=== PATIENT | female | born 1965 | race African-American/Black ===

== ENCOUNTER 2019-05-21 20:19 | Inpatient (IN) | payer BC ==
--- NOTE | 2019-05-21 20:21 | PDOC ---
Rapid Medical Evaluation Time Seen by Provider: 05/21/19 20:20 Medical Evaluation: 05/21/19 20:20 I have performed a brief in-person evaluation of this patient. The patient presents with a chief complaint of:Chest pain x 5 days. H/o HTN and ? "antiphospholipid syndrome" per pt but denies h/o dvt/PE Pertinent physical exam findings:Elevated BP, NAD I have ordered the following:ekg/cxr/labs The patient will proceed to the ED for further evaluation. Discharge Disposition - Diagnosis Chest pain Qualifiers: Chest pain type: unspecified Qualified Code(s): R07.9 - Chest pain, unspecified - Referrals - Patient Instructions - Post Discharge Activity
[2019-05-21] MEDS ORDERED: ASPIRIN 81 MG CHEWABLE TABLETS PO ONE (20:42)
--- NOTE | 2019-05-21 20:43 | PDOC ---
History of Present Illness - General Chief Complaint: Chest Pain Stated Complaint: CHEST PAIN Time Seen by Provider: 05/21/19 20:20 History Source: Patient Exam Limitations: No Limitations - History of Present Illness Initial Comments: 54 year old female with PMH HTN, HLD, pre-diabetes, fibromyalgia, anti- phospholipid syndrome presented to ED for chest pain x1 month, worsening over the last 5 days. Pt reported her pain is currently left sided, non-radiating, a "tightness" sensation, aggravated by emotional stress, alleviated by rest/ relaxation. Pt reported she felt the pain every couple of days or so over the last month, but the last five days she has felt it every single day, prompting her to go to Urgent Care today. Pt reported she was told she had normal labs and normal EKG, but at the end of her visit her chest pain returned and she was advsied to come to the ED for evaluation. Pt denied recent travel>5 hours, recent surgery<4 weeks, active malignancy <6 months, Hx DVT/PE, hormone use. Pt denied cough, fever, vomiting, palpitations, shortness of breath, ROPER, orthopnea , LE swelling. Family cardiac history: -Mother: PA @ 70 yo -Father: PA @ 54 yo -Brother: PA @48 yo Past History - Past Medical History Allergies/Adverse Reactions: Allergies Allergy/AdvReac Type Severity Reaction Status Date / Time No Known Allergies Allergy Verified 05/21/19 20:23 Home Medications: Ambulatory Orders Amlodipine Besylate 10 mg PO DAILY 05/21/19 Aspirin 81 mg PO HS 05/21/19 Hydrochlorothiazide 25 mg PO DAILY 05/21/19 Lisinopril 20 mg PO DAILY 05/21/19 Acetaminophen [Tylenol -] 500 mg PO BID 05/22/19 COPD: No Other medical history: antiphospholipids, tendonitis, bursitis, back paroblems - Suicide/Smoking/Psychosocial Hx Smoking History: Never smoked Review of Systems - Review of Systems Able to Perform ROS?: Yes Comments:: General: denied fever, chills, generalized weakness. HEENT: denied sore throat, rhinorrhea, ear pain. Cardiovascular: admitted to chest pain. denied palpitations, syncope, diaphoresis. Respiratory: denied shortness of breath, cough, sputum production, hemoptysis. Gastrointestinal: denied abdominal pain, nausea, vomiting, diarrhea, constipation, blood in stool. Genitourinary: denied dysuria, increased urinary frequency, hematuria, urinary incontinence, flank pain. Back: denied back pain. Musculoskeletal: denied joint pain, muscle pain, joint swelling. Neurological: denied headache, dizziness, numbness, tingling, weakness. Integumentary: denied rash, laceration, abrasion. Hematologic/Lymphatic: denied bruising or bleeding. *Physical Exam - Vital Signs Last Vital Signs Temp Pulse Resp BP Pulse Ox 98.9 F 61 18 174/93 H 100 05/21/19 20:24 05/21/19 20:24 05/21/19 20:24 05/21/19 20:24 05/21/19 20:24 - Physical Exam Comments: Constitutional: Well-nourished, Well-developed, appearing stated age. HEENT: head is normocephalic, atraumatic. EOMI. PERRLA. Neck: supple. Full ROM. Chest: no rash to anterior chest wall. tenderness with palpation of left sided anterior chest wall. Cardiovascular: regular heart rhythm. no murmurs. no pericardial friction rub. Respiratory: clear to auscultation bilaterally. no crackles, rhonchi or wheezing. no stridor. Gastrointestinal: soft, nontender. normal bowel sounds. no rebound, guarding, masses. Extremities: peripheral pulses intact. no lower extremity edema. Neurological: CN 2-12 grossly intact. moves all four extremities. Psych: awake, alert, oriented x3. follows commands. answers questions appropriately. ED Treatment Course - LABORATORY CBC & Chemistry Diagram: 05/22/19 06:30 05/22/19 06:30 Medical Decision Making - Medical Decision Making 54 year old female with above PMH sent to ED via ambulance from [facility] for chest pain x1 month, worsening over the last five days. Initial Vital Signs Temp Pulse Resp BP Pulse Ox 98.9 F 61 18 174/93 H 100 05/21/19 20:24 05/21/19 20:24 05/21/19 20:24 05/21/19 20:24 05/21/19 20:24 Afebrile. No tachycardia. No tachypnea. Hypertensive. No hypoxia on room air. Labs ordered: CBC, CMP, troponin, BNP -D-dimer ordered by RME cancelled Imaging ordered: CXR, CTA chest Medications ordered: ASA 162 mg PO chew once EKG performed at 2035: rate 56, regular rhythm, normal axis, normal intervals, flipped T III, no acute ST changes. 05/21/19 21:42 CBC WBC 6.5 K/mm3 (4.0-10.0) 05/21/19 20:51 RBC 4.78 M/mm3 (3.60-5.2) 05/21/19 20:51 Hgb 13.5 GM/dL (10.7-15.3) 05/21/19 20:51 Hct 41.1 % (32.4-45.2) 05/21/19 20:51 MCV 86.0 fl (80-96) 05/21/19 20:51 MCH 28.2 pg (25.7-33.7) 05/21/19 20:51 MCHC 32.8 g/dl (32.0-36.0) 05/21/19 20:51 RDW 13.8 % (11.6-15.6) 05/21/19 20:51 Plt Count 316 K/MM3 (134-434) 05/21/19 20:51 MPV 9.4 fl (7.5-11.1) 05/21/19 20:51 Absolute Neuts (auto) 3.4 K/mm3 (1.5-8.0) 05/21/19 20:51 Neutrophils % 52.1 % (42.8-82.8) 05/21/19 20:51 Lymphocytes % 36.4 % (8-40) 05/21/19 20:51 Monocytes % 8.6 % (3.8-10.2) 05/21/19 20:51 Eosinophils % 2.0 % (0-4.5) 05/21/19 20:51 Basophils % 0.9 % (0-2.0) 05/21/19 20:51 Nucleated RBC % 0 % (0-0) 05/21/19 20:51 No leukocytosis. No anemia. 05/21/19 21:49 CMP Sodium 139 mmol/L (136-145) 05/21/19 20:51 Potassium 3.6 mmol/L (3.5-5.1) 05/21/19 20:51 Chloride 102 mmol/L (98-107) 05/21/19 20:51 Carbon Dioxide 30 mmol/L (21-32) 05/21/19 20:51 Anion Gap 7 MMOL/L (8-16) L 05/21/19 20:51 BUN 10.3 mg/dL (7-18) 05/21/19 20:51 Creatinine 1.0 mg/dL (0.55-1.3) 05/21/19 20:51 Est GFR (CKD-EPI)AfAm 73.97 05/21/19 20:51 Est GFR (CKD-EPI)NonAf 63.82 05/21/19 20:51 Random Glucose 100 mg/dL (74-106) 05/21/19 20:51 Calcium 9.9 mg/dL (8.5-10.1) 05/21/19 20:51 Total Bilirubin 0.4 mg/dL (0.2-1) 05/21/19 20:51 AST 28 U/L (15-37) 05/21/19 20:51 ALT 32 U/L (13-61) 05/21/19 20:51 Alkaline Phosphatase 88 U/L (45-117) 05/21/19 20:51 Creatine Kinase 274 U/L (26-192) H 05/21/19 20:51 Troponin I 0.02 ng/ml (0.00-0.05) 05/21/19 20:51 Total Protein 7.8 g/dl (6.4-8.2) 05/21/19 20:51 Albumin 3.7 g/dl (3.4-5.0) 05/21/19 20:51 05/21/19 22:06 Pt signed out to night EM resident, Dr. Moss. Pending CTA. Pt to be admitted under observation for chest pain. 05/22/19 15:59 Follow up: CTA report: Name: [facility] DEPARTMENT OF RADIOLOGY Phys: Susan Song RESIDENT : 1965 Age: 54 Sex: F [facility] Acct: [id number] Loc: [address] Exam Date: 05/21/19 Status: REG JUSTIN Mao [id number] Unit Number: [id number] EXAM#: TYPE/EXAM: RESULT: [id number] CT/CHEST CTA Chest CT angiography Clinical information: left-sided pleuritic chest pain; history of antiphospholipid; evaluate for pulmonary embolism Multiplanar imaging was performed following the intravenous administration of nonionic contrast. No prior imaging studies are available at this facility for direct comparison. No discrete pulmonary embolus is identified. There is no evidence of pneumothorax, pneumomediastinum, infiltrate or pleural effusion. Minimal to mild bilateral lower lobe discoid atelectasis/scarring is seen. There is no definite cardiac enlargement. No pericardial effusion is noted. There is no aortic aneurysm. No obvious aortic dissection is seen allowing for partially obscuring vascular pulsation artifact at the level of the ascending aorta. No definite lymphadenopathy is identified. The trachea and central bronchi appear unremarkable. The visualized osseous structures demonstrate no obvious CT evidence of acute abnormality. Impression: No CT evidence of pulmonary embolism. Minimal to mild bibasilar discoid atelectasis/scarring. The partially imaged left kidney demonstrates a 0.5 cm nonobstructing upper pole calculus. Reported By: Bo Junior MD 05/21/19 2249 *DC/Admit/Observation/Transfer Diagnosis at time of Disposition: Chest pain Qualifiers: Chest pain type: unspecified Qualified Code(s): R07.9 - Chest pain, unspecified - Discharge Dispostion Condition at time of disposition: Stable - Referrals - Patient Instructions - Post Discharge Activity
[2019-05-21 21:08] LABS: BASO % 0.9 % (0-2.0); HEMATOCRIT 41.1 % (32.4-45.2); HEMOGLOBIN 13.5 GM/dL (10.7-15.3); LYMPH % 36.4 % (8-40); MCH 28.2 pg (25.7-33.7); MCHC 32.8 g/dl (32.0-36.0); MEAN PLT VOLUME 9.4 fl (7.5-11.1); MONO % 8.6 % (3.8-10.2); NEUT % 52.1 % (42.8-82.8); PLATELET COUNT 316 K/MM3 (134-434); RBC 4.78 M/mm3 (3.60-5.2); RDW 13.8 % (11.6-15.6); WHITE BLOOD COUNT 6.5 K/mm3 (4.0-10.0)
[2019-05-21] MEDS ORDERED: ASPIRIN 81 MG CHEWABLE TABLETS ONE (21:08)
[2019-05-21 21:48] LABS: ALBUMIN 3.7 g/dl (3.4-5.0); BILIRUBIN,TOTAL 0.4 mg/dL (0.2-1); BLOOD UREA NITROGEN 10.3 mg/dL (7-18); CALCIUM 9.9 mg/dL (8.5-10.1); POTASSIUM 3.6 mmol/L (3.5-5.1); TOT PROT 7.8 g/dl (6.4-8.2)
--- NOTE | 2019-05-21 21:59 | PDOC ---
Documentation entered by Angel Garcia SCRIBE, acting as scribe for Hakeem Patel MD. Hakeem Patel MD: This documentation has been prepared by the Jose warren Daniel, SCRIBE, under my direction and personally reviewed by me in its entirety. I confirm that the documentation accurately reflects all work, treatment, procedures, and medical decision making performed by me. Attending Attestation - Resident Resident Name: Susan Song - ED Attending Attestation I have performed the following: I have examined & evaluated the patient, The case was reviewed & discussed with the resident, I agree w/resident's findings & plan, Exceptions are as noted - HPI HPI: 05/21/19 21:47 The patient is a 54 year old female with a past medical history of HTN, HLD, pre diabetes, and antiphospholipid syndrome here today for evaluation of chest pain. The patient reports that her chest pain began 5 days ago and describes it as left sided, a tightness, intermittent, and worsened by emotional stress and deep breaths. She states that she has been seen at an urgent care facility and received a negative work up. Patient denies headache, lightheadedness. Denies fever, chills. Denies shortness of breath. Denies nausea, vomiting, diarrhea, abdominal pain. Denies lower extremity edema. Denies recent travel Allergies: NKA Family history: [place]. PCP: Kaur Sinha - Physicial Exam PE: 05/21/19 21:47 GENERAL: Awake, alert, and fully oriented, in no acute distress HEAD: No signs of trauma EYES: PERRLA, EOMI, sclera anicteric, conjunctiva clear ENT: Auricles normal inspection, hearing grossly normal, nares patent, oropharynx clear without exudates. Moist mucosa NECK: Normal ROM, supple, no lymphadenopathy, JVD, or masses LUNGS: Breath sounds equal, clear to auscultation bilaterally. No wheezes, and no crackles HEART: Regular rate and rhythm, normal S1 and S2, no murmurs, rubs or gallops ABDOMEN: Soft, nontender, normoactive bowel sounds. No guarding, no rebound. No masses EXTREMITIES: Normal range of motion, no edema. No clubbing or cyanosis. No cords, erythema, or tenderness NEUROLOGICAL: Cranial nerves II through XII grossly intact. Normal speech, normal gait SKIN: Warm, Dry, normal turgor, no rashes or lesions noted. - Medical Decision Making 05/21/19 21:58 Chest pain worse with inspiration in pt w/ anti-phospholipid antibody syndrome HEART score 5 ekg shows TWI in III labs pending will r/o PE with CTA admit tele obs for MARLYS
[2019-05-21 22:07] LABS: PLATELET ESTIMATE ADEQUATE
--- NOTE | 2019-05-21 22:14 | PDOC ---
*Physical Exam - Vital Signs Last Vital Signs Temp Pulse Resp BP Pulse Ox 98.9 F 61 18 174/93 H 100 05/21/19 20:24 05/21/19 20:24 05/21/19 20:24 05/21/19 20:24 05/21/19 20:24 ED Treatment Course - LABORATORY CBC & Chemistry Diagram: 05/21/19 20:51 05/21/19 20:51 - ADDITIONAL ORDERS Additional order review: Laboratory Results 05/21/19 05/21/19 20:51 20:51 D-Dimer Cancelled Sodium 139 Potassium 3.6 Chloride 102 Carbon Dioxide 30 Anion Gap 7 L BUN 10.3 Creatinine 1.0 Est GFR (CKD-EPI)AfAm 73.97 Est GFR (CKD-EPI)NonAf 63.82 Random Glucose 100 Calcium 9.9 Total Bilirubin 0.4 AST 28 ALT 32 Alkaline Phosphatase 88 Creatine Kinase 274 H Creatine Kinase Index 0.5 CK-MB (CK-2) 1.4 Troponin I 0.02 Total Protein 7.8 Albumin 3.7 05/21/19 20:51 RBC 4.78 MCV 86.0 MCHC 32.8 RDW 13.8 MPV 9.4 Neutrophils % 52.1 Lymphocytes % 36.4 Monocytes % 8.6 Eosinophils % 2.0 Basophils % 0.9 - Medications Given in the ED: ED Medications Discontinued Medications Generic Name Dose Route Start Last Admin Trade Name Freq PRN Reason Stop Dose Admin Aspirin 162 mg 05/21/19 20:42 05/21/19 21:30 Asa - PO 05/21/19 20:43 162 mg ONCE ONE Administration Medical Decision Making - Medical Decision Making 05/21/19 22:12 Patient received on sign out from Dr. Song. 05/21/19 2300 CTA negative. 05/21/19 2330 Discussed with the hospitalist who accepts the patient for tele obs. *DC/Admit/Observation/Transfer Diagnosis at time of Disposition: Chest pain Qualifiers: Chest pain type: unspecified Qualified Code(s): R07.9 - Chest pain, unspecified - Discharge Dispostion Condition at time of disposition: Stable - Referrals - Patient Instructions - Post Discharge Activity
--- NOTE | 2019-05-21 23:34 | PN ---
Teaching Attending Note Name of Resident: Erickson Tiwari ATTENDING PHYSICIAN STATEMENT I saw and evaluated the patient. I reviewed the resident's note and discussed the case with the resident. I agree with the resident's findings and plan as documented. SUBJECTIVE: Patient is a 54 year old woman with a PMH of Fibromyalgia, HTN, HLD, Trigeminal neuralgia, C5-6 herniated disc,Prediabetes and Antiphospholipid syndrome who presents for evaluation of chest pain. The patient reports that her chest pain began 5 days ago and describes it as left sided, a tightness, intermittent, and worsened by emotional stress and deep breaths. She states that she has been seen at an urgent care facility and she was told she had normal labs and normal EKG. Patient denies headache, lightheadedness. Denies fever, chills. Denies shortness of breath. Denies nausea, vomiting, diarrhea, abdominal pain. Denies lower extremity edema. Denies recent travel. Has FH of premature CAD, DM and breast cancer but no VTE. OBJECTIVE: Alert Vital Signs Period Temp Pulse Resp BP Sys/Hooper Pulse Ox Last 24 Hr 98.9 F 61 18 174/93 100 HEENT: No Jaundice, eye redness or discharge, PERRLA, EOMI. Normocephalic, atraumatic. External ears are normal and hearing is grossly intact. No nasal discharge. Neck: Supple, nontender. No palpable adenopathy or thyromegaly. No JVD Chest: Good effort. Clear to auscultation and percussion. Heart: Regular. No S3, rub or murmur Abdomen: Not distended, soft, nontender and no HSM. No rebound or guarding. Normal bowel sounds. Ext: Peripheral pulses intact. No leg edema. Skin: Warm and dry. No petechiae, rash or ecchymosis. Neuro: Alert. Oriented x3. CN 2-12 grossly intact. Sensation grossly intact in all four extremities and DTR are symmetric. Psych: Appropriate mood and affect. Good insight. Home Medications Medication Instructions Recorded Amlodipine Besylate 10 mg PO DAILY 05/21/19 Aspirin 81 mg PO DAILY 05/21/19 Hydrochlorothiazide 25 mg PO DAILY 05/21/19 Lisinopril 20 mg PO DAILY 05/21/19 Abnormal Lab Results 05/21/19 20:51 Anion Gap 7 L Creatine Kinase 274 H ASSESSMENT AND PLAN: 1. Chest pain - Pain is atypical for ACS. EKG shows sinus bradycardia with T wave inversion in Lead III and initial troponin is negative. Will admit to telemetry to rule out ACS, get ECHO, fasting lipids and consult cardiology. CTA of chest didnot show any pulmonary embolism but noted bibasilar atelectasis and left upper lobe kidney calculus. No abnormality on CXR. Will continue comprehensive care of all her comorbid conditions. 2. Prediabetes Will implement sliding scale insulin regimen. Provide comprehensive diabetes care with patient teaching and counseling about the importance of adherence to prescribed diabetes regimen, euglycemia, eye care and foot care. 3. Obesity Counseled on the risks associated with obesity. Will provide patient all the necessary assistance, counseling and positive reinforcement to facilitate weight loss. Consult aquatics manager. 4. Uncontrolled hypertension - Restart suitable outpatient antihypertensive drugs when clinically appropriate. Revise regimen to ensure [id number] excellent BP control and general counsel patient on the injurious effects of uncontrolled hypertension. Nonpharmacologic measures to control hypertension like weight loss, salt restriction and exercise discussed. Importance of adherence to treatment regimen and attainment of normotension emphasized. 5. DVT prophylaxis - Lovenox 40 mg SQ q 24 hours. 6. Advance directives - Full code
--- NOTE | 2019-05-22 00:45 | HP ---
CHIEF COMPLAINT: chest pain PCP: Dr. Kaur Sinha HISTORY OF PRESENT ILLNESS: Alicia Albarado is a 54 year old female with a past medical history of hypertension, hyperlipidemia, pre-diabetes, trigeminal neuralgia, C5-C6 disc herniations, antiphospholipid syndrome, hiatal hernia, GERD, who presented to the hospital from an urgent care center with 5 days of chest pain. The patient stated that she has had chest pain on and off for several months however it was not as painful as it was when it started 5 days ago. She states that the pain is pressure like in nature with occasional stabbing-like pain located on the L side of her chest radiating to the shoulder and neck and worsened with stressful emotions and deep breathing. She attempted heating pads, rest, and 1000mg of Tylenol for the pain with no relief. Stated that the pain currently is a 6/10 in intensity but goes as high as 9/10. Associated with the pain has been intermittent nausea, diaphoresis, sporadic feelings of heart fluttering, and swelling in legs. She denies shortness of breath, dizziness, lightheadedness , fevers, chills, urinary symptoms, abdominal pain, vomiting, leg pain, numbness, tingling. Of note, patient had bleeding from her left breast several months back for which she had a breast biopsy done, stated that the results were benign. Currently stated that she again had bleeding from the left breast for which she has an appointment for with her PHOTO INTERN Dr. Rosibel Gannon for follow up. ER course was notable for: (1) EKG with T wave inversion in lead III, premature atrial complex (2) given aspirin 162mg once (3) CXR with no acute abnormalities, CTA showing mild bibasilar discoid atelectasis, L kidney 0.5cm nonobstructing calculus, negative for PE Recent Travel: none PAST MEDICAL HISTORY: as above PAST SURGICAL HISTORY: partial hysterectomy (uterus removed), breast biopsy x2 Social History: Smoking: denies Alcohol: denies Drugs: denies Work: Desk job at [employer] Lives with son Family History: Mother- dialysis, [place] Father - [place], age 54 Brother- [place], age 48 Brother- [place] Sister- Hodgkin lymphoma Sister- Breast [place] Allergies shellfish -- anaphylactic reaction HOME MEDICATIONS: Home Medications Medication Instructions Recorded Amlodipine Besylate 10 mg PO DAILY 05/21/19 Aspirin 81 mg PO DAILY 05/21/19 Hydrochlorothiazide 25 mg PO DAILY 05/21/19 Lisinopril 20 mg PO DAILY 05/21/19 Acetaminophen [Tylenol -] 500 mg PO PRN PRN 05/22/19 REVIEW OF SYSTEMS CONSTITUTIONAL: diaphoresis Absent: fever, chills, generalized weakness, malaise, loss of appetite, weight change HEENT: Absent: rhinorrhea, nasal congestion, throat pain, throat swelling, difficulty swallowing, visual changes CARDIOVASCULAR: chest pain, palpitations Absent: syncope, irregular heart rate, lightheadedness RESPIRATORY: Absent: cough, shortness of breath, dyspnea with exertion, orthopnea, wheezing, stridor, GASTROINTESTINAL: nausea Absent: abdominal pain, abdominal distension, vomiting, diarrhea, constipation, GENITOURINARY: Absent: dysuria, frequency, urgency, hesitancy, hematuria, flank pain, genital pain MUSCULOSKELETAL: neck pain Absent: myalgia, arthralgia, joint swelling, back pain, SKIN: Absent: rash, itching, pallor HEMATOLOGIC/IMMUNOLOGIC: Absent: easy bleeding, easy bruising, lymphadenopathy, ENDOCRINE: Absent: unexplained weight gain, unexplained weight loss, heat intolerance, cold intolerance NEUROLOGIC: Absent: headache, focal weakness or paresthesias, dizziness, unsteady gait, seizure, mental status changes, bladder or bowel incontinence PSYCHIATRIC: Absent: anxiety, depression, suicidal or homicidal ideation, hallucinations. PHYSICAL EXAMINATION Vital Signs - 24 hr 05/21/19 05/21/19 05/22/19 20:24 20:45 00:29 Temperature 98.9 F 98.3 F 98.4 F Pulse Rate 61 99 H Pulse Rate [ 57 L 56 L Left Apical] Respiratory 18 18 18 Rate Blood Pressure 174/93 H Blood Pressure 133/83 175/84 H [Right Arm] O2 Sat by Pulse 100 99 97 Oximetry (%) GENERAL: Awake, alert, and fully oriented, in no acute distress. HEAD: Normal with no signs of trauma. EYES: Pupils equal, round and reactive to light, extraocular movements intact, sclera anicteric, conjunctiva clear. NECK: Normal range of motion, supple without lymphadenopathy, JVD. LUNGS: Breath sounds equal, clear to auscultation bilaterally. No wheezes, and no crackles. No accessory muscle use. HEART: Regular rate and rhythm, normal S1 and S2 without murmur, rub or gallop. Non-reproducible chest pain to palpation. ABDOMEN: Soft, nontender, not distended, normoactive bowel sounds, no guarding, no rebound, no masses. MUSCULOSKELETAL: Normal range of motion at all joints. No bony deformities or tenderness. UPPER EXTREMITIES: 2+ pulses, warm, well-perfused. No cyanosis. No clubbing. No peripheral edema. LOWER EXTREMITIES: 2+ pulses, warm, well-perfused. No calf tenderness. No peripheral edema. NEUROLOGICAL: Cranial nerves II-XII intact. Muscle strength 5/5 bilaterally upper and lower extremities. PSYCHIATRIC: Cooperative. Good eye contact. Appropriate mood and affect. SKIN: Warm, dry, normal turgor, no rashes or lesions noted, normal capillary refill. Laboratory Results - last 24 hr 05/21/19 05/21/19 05/21/19 20:51 20:51 20:51 WBC 6.5 RBC 4.78 Hgb 13.5 Hct 41.1 MCV 86.0 MCH 28.2 MCHC 32.8 RDW 13.8 Plt Count 316 MPV 9.4 Absolute Neuts (auto) 3.4 Neutrophils % 52.1 Lymphocytes % 36.4 Monocytes % 8.6 Eosinophils % 2.0 Basophils % 0.9 Nucleated RBC % 0 Platelet Estimate Adequate Platelet Comment Giant platelets D-Dimer Cancelled Sodium 139 Potassium 3.6 Chloride 102 Carbon Dioxide 30 Anion Gap 7 L BUN 10.3 Creatinine 1.0 Est GFR (CKD-EPI)AfAm 73.97 Est GFR (CKD-EPI)NonAf 63.82 Random Glucose 100 Calcium 9.9 Total Bilirubin 0.4 AST 28 ALT 32 Alkaline Phosphatase 88 Creatine Kinase 274 H Creatine Kinase Index 0.5 CK-MB (CK-2) 1.4 Troponin I 0.02 Total Protein 7.8 Albumin 3.7 EKG--> T wave inversion in lead III, premature atrial complexes ASSESSMENT/PLAN: Alicia Albarado is a 54 year old female with a past medical history of hypertension, hyperlipidemia, pre-diabetes, trigeminal neuralgia, C5-C6 disc herniations, antiphospholipid syndrome, hiatal hernia, GERD who presented with chest pain admitted to rule out acute coronary syndrome. Chest pain HTN HLD Pre-diabetes GERD Chest pain - unlikely cardiac in origin due to duration and presentation however has significant medical and family history - possible pain originating from breast in setting of bleeding from breast - EKG with no acute ST changes - repeat EKG in the morning - troponins x2 negative, trend third - cardiac monitoring - Dr. Jaramillo consulted - A1c - lipid panel - contine aspirin 81mg daily - HEART Score 4 - Ofirmev for pain HTN - HCTZ 12.5mg daily - home lisinopril 20mg - home amlodipine 10mg qhs - patient takes medications all in the morning, will need to stager medication doses to take in the morning and at night HLD - not on any home medications - lipid panel and evaluate for necessity to start on cholesterol medications Pre-Diabetes - A1c in the morning - diet controlled, no current medications - if a1c elevated, consider starting on ISS and BGM GERD - protonix 20mg daily FEN - no standing fluids - continue to monitor electrolytes and replete as necessary - NPO pending possible stress test vs cath tomorrow Prophylaxis - Lovenox 40mg daily Code - full code HAM BECKER DO - PGY-1 Visit type - Emergency Visit Emergency Visit: Yes ED Registration Date: 05/21/19 Care time: The patient presented to the Emergency Department on the above date and was hospitalized for further evaluation of their emergent condition. - New Patient This patient is new to me today: Yes Date on this admission: 05/22/19 - Critical Care Critical Care patient: No
[2019-05-22] MEDS ORDERED: ACETAMINOPHEN 1000 MG/100 ML VIAL (NON FORMULARY) IVPB ONE (01:43)
[2019-05-22] MEDS ORDERED: LISINOPRIL 20 MG TABLET (FP) PO ONE (02:08)
[2019-05-22 02:44] VITALS: BMI 36.3
[2019-05-22] MEDS: PANTOPRAZOLE 20 MG TABLET (FP) PO SCH (05:59)
[2019-05-22 08:04] LABS: BASO % 0.3 % (0-2.0); EOS % 2.4 % (0-4.5); HEMATOCRIT 39.1 % (32.4-45.2); LYMPH % 35.5 % (8-40); MCH 28.5 pg (25.7-33.7); MCHC 33.4 g/dl (32.0-36.0); MEAN CELL VOLUME 85.2 fl (80-96); MEAN PLT VOLUME 9.6 fl (7.5-11.1); MONO % 11.3 % (3.8-10.2); NEUT % 50.5 % (42.8-82.8); PLATELET COUNT 299 K/MM3 (134-434); RBC 4.58 M/mm3 (3.60-5.2); RDW 13.8 % (11.6-15.6); WHITE BLOOD COUNT 5.6 K/mm3 (4.0-10.0)
--- NOTE | 2019-05-22 08:25 | PN ---
Teaching Attending Note Name of Resident: Humera Ames ATTENDING PHYSICIAN STATEMENT I saw and evaluated the patient. I reviewed the resident's note and discussed the case with the resident. I agree with the resident's findings and plan as documented. SUBJECTIVE: Patient is comfortable with no acute distress, stated that her pain comes and goes and radiates to her neck ,also has Fhx of [place] , father in his 50.s and brother in his 40's. OBJECTIVE: Vital Signs Temperature 98.2 F 05/22/19 06:00 Pulse Rate 50 L 05/22/19 06:00 Respiratory Rate 18 05/22/19 06:00 Blood Pressure 130/78 05/22/19 06:00 O2 Sat by Pulse Oximetry (%) 100 05/22/19 00:39 GENERAL: The patient is awake, alert, and fully oriented, in no acute distress. HEAD: Normal with no signs of trauma. EYES: PERRL, extraocular movements intact, sclera anicteric, conjunctiva clear. ENT: Ears normal, oropharynx clear without exudates, moist mucous membranes. NECK: Trachea midline, full range of motion, supple. LUNGS: Breath sounds equal, clear to auscultation bilaterally, no wheezes, no crackles, no accessory muscle use. HEART: sinus bradycardia , S1, S2 positive, no murmur, rub or gallop. ABDOMEN: Soft, nontender, nondistended, normoactive bowel sounds, no guarding, no rebound, no hepatosplenomegaly, no masses. EXTREMITIES: 2+ pulses, warm, well-perfused, no edema. NEUROLOGICAL: Cranial nerves II through XII grossly intact. Normal speech, gait is stable PSYCH: Normal mood, normal affect. SKIN: Warm, dry, normal turgor, no rashes or lesions noted CBCD WBC 5.6 K/mm3 (4.0-10.0) 05/22/19 06:30 RBC 4.58 M/mm3 (3.60-5.2) 05/22/19 06:30 Hgb 13.0 GM/dL (10.7-15.3) 05/22/19 06:30 Hct 39.1 % (32.4-45.2) 05/22/19 06:30 MCV 85.2 fl (80-96) 05/22/19 06:30 MCHC 33.4 g/dl (32.0-36.0) 05/22/19 06:30 RDW 13.8 % (11.6-15.6) 05/22/19 06:30 Plt Count 299 K/MM3 (134-434) 05/22/19 06:30 MPV 9.6 fl (7.5-11.1) 05/22/19 06:30 CMP Sodium 139 mmol/L (136-145) 05/21/19 20:51 Potassium 3.6 mmol/L (3.5-5.1) 05/21/19 20:51 Chloride 102 mmol/L (98-107) 05/21/19 20:51 Carbon Dioxide 30 mmol/L (21-32) 05/21/19 20:51 Anion Gap 7 MMOL/L (8-16) L 05/21/19 20:51 BUN 10.3 mg/dL (7-18) 05/21/19 20:51 Creatinine 1.0 mg/dL (0.55-1.3) 05/21/19 20:51 Random Glucose 100 mg/dL (74-106) 05/21/19 20:51 Calcium 9.9 mg/dL (8.5-10.1) 05/21/19 20:51 Total Bilirubin 0.4 mg/dL (0.2-1) 05/21/19 20:51 AST 28 U/L (15-37) 05/21/19 20:51 ALT 32 U/L (13-61) 05/21/19 20:51 Alkaline Phosphatase 88 U/L (45-117) 05/21/19 20:51 Total Protein 7.8 g/dl (6.4-8.2) 05/21/19 20:51 Albumin 3.7 g/dl (3.4-5.0) 05/21/19 20:51 CARDIAC ENZYMES Creatine Kinase 274 U/L (26-192) H 05/21/19 20:51 Troponin I 0.02 ng/ml (0.00-0.05) 05/22/19 01:30 Current Medications Generic Name Dose Route Start Last Admin Trade Name Freq PRN Reason Stop Dose Admin Amlodipine Besylate 10 mg 05/22/19 22:00 Norvasc - PO HS KRYSTLE Aspirin 81 mg 05/22/19 10:00 Asa - PO DAILY [facility] Enoxaparin Sodium 40 mg 08/29/19 10:00 Lovenox - SQ DAILY [facility] Hydrochlorothiazide 12.5 mg 05/22/19 10:00 Hctz - PO DAILY [facility] Pantoprazole Sodium 20 mg 05/22/19 07:00 05/22/19 05:59 Protonix - PO 20 mg ACBK [facility] Administration Home Medications Medication Instructions Recorded Amlodipine Besylate 10 mg PO DAILY 05/21/19 Aspirin 81 mg PO HS 05/21/19 Hydrochlorothiazide 25 mg PO DAILY 05/21/19 Lisinopril 20 mg PO DAILY 05/21/19 Acetaminophen [Tylenol -] 500 mg PO BID 05/22/19 ASSESSMENT AND PLAN: Patient is a 54 year old female with a past medical history of hypertension, hyperlipidemia, pre-diabetes, trigeminal neuralgia, C5-C6 disc herniations, antiphospholipid syndrome, hiatal hernia, GERD who presented with chest pain and was admitted to rule out acute coronary syndrome. #Chest pain #HTN: continue BP meds. #HLD #Pre-diabetes #GERD # Nipple bloody discharge: patient has an appointment with her oncologist as an outpatient squeezing pain with radiation nl ekg outpatient , patient had it with her , but ekg changes in the hospital surgical menapause family hx of CAD at age of 48-50 patient will need an stress test discussed with cardiology NPO after midnight continue ASA
[2019-05-22 08:41] LABS: ALBUMIN 3.5 g/dl (3.4-5.0); BILIRUBIN,TOTAL 0.7 mg/dL (0.2-1); BLOOD UREA NITROGEN 11.8 mg/dL (7-18); CALCIUM 9.8 mg/dL (8.5-10.1); CREATININE 0.9 mg/dL (0.55-1.3); MAGNESIUM 2.2 mg/dL (1.8-2.4); POTASSIUM 3.8 mmol/L (3.5-5.1); TOT PROT 7.2 g/dl (6.4-8.2)
[2019-05-22] MEDS: ENOXAPARIN NA (PORCINE) 40 MG/0.4 ML DISP.SYRIN SQ SCH (09:21)
[2019-05-22] MEDS: ASPIRIN 81 MG CHEWABLE TABLETS PO SCH (09:21)
--- NOTE | 2019-05-22 10:31 | EKG ---
Test Reason : Blood Pressure : / mmHG Vent. Rate : 056 BPM Atrial Rate : 056 BPM P-R Int : 192 ms QRS Dur : 090 ms QT Int : 422 ms P-R-T Axes : 037 013 012 degrees QTc Int : 407 ms SINUS BRADYCARDIA WITH PREMATURE ATRIAL COMPLEXES OTHERWISE NORMAL ECG NO PREVIOUS ECGS AVAILABLE Confirmed by JILLIAN BELTRAN, BRINA ([id number]) on 05/22/2019 10:30:52 AM Referred By: Confirmed By:BRINA WALSH MD
--- NOTE | 2019-05-22 10:59 | ECHO ---
Name: BRIAN RODRIGUEZ Exam:Adult Echocardiogram Study Date: 05/22/2019 07:49 AM Age: 54 yrs Reason For Study: evaluate heart function Height: 69 in Weight: 245 lb BSA: 2.3 m2 MMode/2D Measurements & Calculations IVSd: 1.0 cm Ao root diam: 2.7 cm LVIDd: 4.4 cm LA dimension: 3.2 cm LVIDs: 2.9 cm LVPWd: 1.3 cm LVPWs: 1.5 cm EDV(Teich): 86.4 ml ESV(Teich): 31.3 ml Doppler Measurements & Calculations MV E max linus: 85.4 cm/sec Ao V2 max: 127.9 cm/sec MV A max linus: 64.2 cm/sec Ao max P.5 mmHg MV E/A: 1.3 Ao V2 mean: 90.0 cm/sec MV dec time: 0.28 sec Ao mean P.7 mmHg Ao V2 VTI: 31.2 cm LV V1 max P.4 mmHg TR max linus: 247.6 cm/sec LV V1 mean P.2 mmHg TR max P.5 mmHg LV V1 max: 104.6 cm/sec RVSP(TR): 34.5 mmHg LV V1 mean: 68.6 cm/sec LV V1 VTI: 24.2 cm PA V2 max: 103.2 cm/sec Med Peak E' Linus: 9.4 cm/sec PA max P.3 mmHg Med E/e': 9.1 Lat Peak E' Linus: 9.0 cm/sec Lat E/e': 9.5 RAP systole: 10.0 mmHg Procedure A complete two-dimensional transthoracic echocardiogram was performed (2D, M-mode, Doppler and color flow Doppler). Left Ventricle The left ventricular size, thickness and function are normal. The left ventricular ejection fraction is normal. Ejection Fraction = 60-65%. The left ventricular wall motion is normal. Right Ventricle The right ventricle is normal in size and function. Atria Normal left and right atrial size and function. Mitral Valve There is no mitral regurgitation noted. Tricuspid Valve There is mild tricuspid regurgitation. Right ventricular systolic pressure is normal. Aortic Valve No hemodynamically significant valvular aortic stenosis. No aortic regurgitation is present. Pulmonic Valve There is no pulmonic valvular regurgitation. Great Vessels The aortic root is normal size. Pericardium/Pleura There is no pericardial effusion. Interpretation Summary The left ventricular size, thickness and function are normal The right ventricle is normal in size and function. There is mild tricuspid regurgitation. MD Vinicius Birmingham 05/22/2019 10:58 AM
[2019-05-22] MEDS: HYDROCHLOROTHIAZIDE 12.5 MG CAPSULE (FP) PO SCH (12:15)
[2019-05-22] MEDS ORDERED: REGADENOSON 0.4 MG/5 ML PRE-FILLED SYRINGE IVPUSH ONE ×2 (13:15→13:39)
--- NOTE | 2019-05-22 15:29 | EKG ---
Test Reason : Blood Pressure : / mmHG Vent. Rate : 050 BPM Atrial Rate : 050 BPM P-R Int : 192 ms QRS Dur : 094 ms QT Int : 448 ms P-R-T Axes : 037 011 011 degrees QTc Int : 408 ms SINUS BRADYCARDIA OTHERWISE NORMAL ECG WHEN COMPARED WITH ECG OF 21-MAY-2019 20:36, PREMATURE ATRIAL COMPLEXES ARE NO LONGER PRESENT Confirmed by BRINA WALSH MD ([id number]) on 05/22/2019 3:28:45 PM Referred By: EUGENIO CHEEK DR Confirmed By:BRINA WALSH MD
--- NOTE | 2019-05-22 16:34 | PN ---
Physical Exam: SUBJECTIVE: Patient seen and examined. Patient was in no acute distressed at bedside. Just occasional tightening sensation on the left radiating to the shoulder OBJECTIVE: Vital Signs Period Temp Pulse Resp BP Sys/Hooper Pulse Ox Last 24 Hr 98.1 F-98.9 F 50-99 18-18 130-175/78-113 97-100 GENERAL: The patient is awake, alert, and fully oriented, in no acute distress. HEAD: Normal with no signs of trauma. NECK: Trachea midline, full range of motion, supple. LUNGS: Breath sounds equal, clear to auscultation bilaterally, no wheezes, no crackles, no accessory muscle use. HEART: Regular rate and rhythm, S1, S2 without murmur, rub or gallop. ABDOMEN: Soft, nontender, nondistended, normoactive bowel sounds, no guarding, no rebound, no hepatosplenomegaly, no masses. EXTREMITIES: 2+ pulses, warm, well-perfused, no edema. NEUROLOGICAL: Normal speech, gait not observed. Laboratory Results - last 24 hr 05/21/19 05/21/19 05/21/19 20:51 20:51 20:51 WBC 6.5 RBC 4.78 Hgb 13.5 Hct 41.1 MCV 86.0 MCH 28.2 MCHC 32.8 RDW 13.8 Plt Count 316 MPV 9.4 Absolute Neuts (auto) 3.4 Neutrophils % 52.1 Lymphocytes % 36.4 Monocytes % 8.6 Eosinophils % 2.0 Basophils % 0.9 Nucleated RBC % 0 Platelet Estimate Adequate Platelet Comment Giant platelets D-Dimer Cancelled Sodium 139 Potassium 3.6 Chloride 102 Carbon Dioxide 30 Anion Gap 7 L BUN 10.3 Creatinine 1.0 Est GFR (CKD-EPI)AfAm 73.97 Est GFR (CKD-EPI)NonAf 63.82 Random Glucose 100 Hemoglobin A1c % Calcium 9.9 Magnesium Total Bilirubin 0.4 AST 28 ALT 32 Alkaline Phosphatase 88 Creatine Kinase 274 H Creatine Kinase Index 0.5 CK-MB (CK-2) 1.4 Troponin I 0.02 B-Natriuretic Peptide Total Protein 7.8 Albumin 3.7 Triglycerides Cholesterol Total LDL Cholesterol HDL Cholesterol TSH Free T4 05/22/19 05/22/19 05/22/19 00:00 01:30 06:30 WBC 5.6 RBC 4.58 Hgb 13.0 Hct 39.1 MCV 85.2 MCH 28.5 MCHC 33.4 RDW 13.8 Plt Count 299 MPV 9.6 Absolute Neuts (auto) 2.8 Neutrophils % 50.5 Lymphocytes % 35.5 Monocytes % 11.3 H Eosinophils % 2.4 Basophils % 0.3 Nucleated RBC % 0 Platelet Estimate Platelet Comment D-Dimer Sodium Potassium Chloride Carbon Dioxide Anion Gap BUN Creatinine Est GFR (CKD-EPI)AfAm Est GFR (CKD-EPI)NonAf Random Glucose Hemoglobin A1c % Calcium Magnesium Total Bilirubin AST ALT Alkaline Phosphatase Creatine Kinase Creatine Kinase Index CK-MB (CK-2) Troponin I 0.02 B-Natriuretic Peptide 19.6 Total Protein Albumin Triglycerides Cholesterol Total LDL Cholesterol HDL Cholesterol TSH Free T4 05/22/19 05/22/19 06:30 06:30 WBC RBC Hgb Hct MCV MCH MCHC RDW Plt Count MPV Absolute Neuts (auto) Neutrophils % Lymphocytes % Monocytes % Eosinophils % Basophils % Nucleated RBC % Platelet Estimate Platelet Comment D-Dimer Sodium 140 Potassium 3.8 Chloride 103 Carbon Dioxide 30 Anion Gap 7 L BUN 11.8 Creatinine 0.9 Est GFR (CKD-EPI)AfAm 84.01 Est GFR (CKD-EPI)NonAf 72.49 Random Glucose 90 Hemoglobin A1c % 5.6 Calcium 9.8 Magnesium 2.2 Total Bilirubin 0.7 AST 27 ALT 30 Alkaline Phosphatase 83 Creatine Kinase Creatine Kinase Index CK-MB (CK-2) Troponin I B-Natriuretic Peptide Total Protein 7.2 Albumin 3.5 Triglycerides 80 Cholesterol 214 H Total LDL Cholesterol 139 H HDL Cholesterol 58 TSH 4.04 H Free T4 1.05 Active Medications Generic Name Dose Route Start Last Admin Trade Name Freq PRN Reason Stop Dose Admin Amlodipine Besylate 10 mg 05/22/19 22:00 Norvasc - PO HS [facility] Aspirin 81 mg 05/22/19 10:00 05/22/19 09:21 Asa - PO 81 mg DAILY [facility] Administration Enoxaparin Sodium 40 mg 05/22/19 10:00 05/22/19 09:21 Lovenox - SQ 40 mg DAILY [facility] Administration Hydrochlorothiazide 12.5 mg 05/22/19 10:00 05/22/19 12:15 Hctz - PO 12.5 mg DAILY [facility] Administration Pantoprazole Sodium 20 mg 05/22/19 07:00 05/22/19 05:59 Protonix - PO 20 mg ACBK [facility] Administration ASSESSMENT/PLAN: 54 year old female with a past medical history of hypertension, hyperlipidemia, pre-diabetes, trigeminal neuralgia, C5-C6 disc herniations, antiphospholipid syndrome, hiatal hernia, GERD, who presented to the hospital from an urgent care center admitted for chest pain. Chest pain unlikely cardiac in origin due to duration and presentation however has significant medical and family history EKG with no acute ST changes cardiac monitoring troponins x2 negative, trend third lipid panel cholesterol 214, total LDL 139, HDL 54 contine aspirin 81mg daily for antiphospholipid syndrome CT/CTA of the chest showed no evidence of pulmonary embolism. minimal to mild basilar atelectasis. Xray chest showed large heart. unfolded aorta. no acute lung pathology Echo showed normal LV and RV size, function, thickness/ mild TR going for Nuclear scan tomorrow NPO after midnight TSH 4.04, FT4 1.05 HTN HCTZ 12.5mg daily home lisinopril 20mg home amlodipine 10mg qhs all in morning HLD lipid panel cholesterol 214, total LDL 139, HDL 54, trig 80 evaluate need for statin Pre-Diabetes A1c in the morning diet controlled, no current medications if a1c elevated, consider starting on ISS and BGM GERD protonix 20mg daily FEN no standing fluids - continue to monitor electrolytes and replete as necessary nuclear scan tomorrow morning (pt has multiple orthopedic issues) Prophylaxis - Lovenox 40mg daily Code - full code Visit type - Emergency Visit Emergency Visit: Yes ED Registration Date: 05/21/19 Care time: The patient presented to the Emergency Department on the above date and was hospitalized for further evaluation of their emergent condition. - New Patient This patient is new to me today: Yes Date on this admission: 05/22/19 - Critical Care Critical Care patient: No - Discharge Referral Referred to [facility] Med P.C.: No ATTENDING PHYSICIAN STATEMENT I saw and evaluated the patient. I reviewed the resident's note and discussed the case with the resident. I agree with the resident's findings and plan as documented. SUBJECTIVE: OBJECTIVE: ASSESSMENT AND PLAN:
--- NOTE | 2019-05-22 17:10 | CON.CARD ---
Consult Consult Specialty:: Cardiology Reason for Consultation:: CP - History of Present Illness History of Present Illness: 54 year old female with history of hypertension, hyperlipidemia, pre-diabetes, trigeminal neuralgia, C5-C6 disc herniations, antiphospholipid syndrome developed intermittent chest pressure with radiation to the neck but also with palpation of her chest. She is sedentary due to her back pain and does not report symptoms with exertion. Echo and ECG were normal - History Source History Provided By: Patient Limitations to Obtaining History: No Limitations - Past Medical History ...: No - Alcohol/Substance Use Hx Alcohol Use: No - Smoking History Smoking history: Never smoked Have you smoked in the past 12 months: No Home Medications - Allergies Allergies/Adverse Reactions: Allergies Allergy/AdvReac Type Severity Reaction Status Date / Time No Known Allergies Allergy Verified 05/21/19 20:23 - Home Medications Home Medications: Ambulatory Orders Amlodipine Besylate 10 mg PO DAILY 05/21/19 Aspirin 81 mg PO HS 05/21/19 Hydrochlorothiazide 25 mg PO DAILY 05/21/19 Lisinopril 20 mg PO DAILY 05/21/19 Acetaminophen [Tylenol -] 500 mg PO BID 05/22/19 Albuterol Sulfate 0.5% [Ventolin 0.5% -] 1 neb IH PRN PRN 05/22/19 Ergocalciferol (Vitamin D2) [Vitamin D2] 50,000 unit PO WEEKLY 05/22/19 Lidocaine 5% Patch [Lidoderm -] 1 patch TD DAILY 05/22/19 Pregabalin [Lyrica -] 50 mg PO BID 05/22/19 Review of Systems - Review of Systems Constitutional: reports: No Symptoms Eyes: reports: No Symptoms HENT: reports: No Symptoms Neck: reports: No Symptoms Cardiovascular: reports: Chest Pain. denies: Edema, Palpitations, Shortness of Breath Respiratory: reports: No Symptoms Gastrointestinal: reports: No Symptoms Vital Signs: Vital Signs Temperature 98.2 F 05/22/19 16:30 Pulse Rate 73 05/22/19 16:30 Respiratory Rate 18 05/22/19 16:30 Blood Pressure 124/77 05/22/19 16:30 O2 Sat by Pulse Oximetry (%) 99 05/22/19 09:00 Constitutional: Yes: Well Nourished, No Distress Eyes: Yes: WNL, Conjunctiva Clear, EOM Intact HENT: Yes: Atraumatic, Normocephalic Neck: Yes: Supple, Trachea Midline Respiratory: Yes: Regular, CTA Bilaterally Gastrointestinal: Yes: Normal Bowel Sounds, Soft JVD: No Carotid Bruit: No PMI: Non-Displaced Heart Sounds: Yes: S1, S2 Murmur: No: Systolic Murmur, Diastolic Murmur Musculoskeletal: Yes: WNL Extremities: Yes: WNL Edema: No Peripheral Pulses WNL: Yes - Other Data Labs, Other Data: CBC, BMP 05/22/19 06:30 05/22/19 06:30 Troponin, BNP 05/21/19 05/22/19 05/22/19 20:51 00:00 01:30 Troponin I 0.02 0.02 B-Natriuretic Peptide 19.6 Troponin, BNP 05/21/19 05/22/19 05/22/19 20:51 00:00 01:30 Troponin I 0.02 0.02 B-Natriuretic Peptide 19.[address] T changes. Problem List - Problems (1) Chest pain Code(s): R07.9 - CHEST PAIN, UNSPECIFIED Qualifiers: Chest pain type: unspecified Qualified Code(s): R07.9 - Chest pain, unspecified Assessment/Plan 54 F with risk factors for CAD with atypical CP. Normal cardiac parameters so far. Advise Lexiscan NST prior to discharge.
[2019-05-22] MEDS: ACETAMINOPHEN 325 MG TABLET (FP) PO PRN (18:34)
[2019-05-22] MEDS ORDERED: amLODIPine BESYLATE 10 MG TABLET (FP) PO SCH (22:00)
[2019-05-23] MEDS: ACETAMINOPHEN 325 MG TABLET (FP) PO PRN (01:29)
[2019-05-23 07:35] LABS: HEMATOCRIT 40.9 % (32.4-45.2); HEMOGLOBIN 13.6 GM/dL (10.7-15.3); MCH 28.4 pg (25.7-33.7); MCHC 33.2 g/dl (32.0-36.0); MEAN CELL VOLUME 85.6 fl (80-96); MEAN PLT VOLUME 9.3 fl (7.5-11.1); PLATELET COUNT 294 K/MM3 (134-434); RBC 4.78 M/mm3 (3.60-5.2); RDW 13.8 % (11.6-15.6); WHITE BLOOD COUNT 6.4 K/mm3 (4.0-10.0)
[2019-05-23 07:58] LABS: ALBUMIN 3.5 g/dl (3.4-5.0); BILIRUBIN,TOTAL 0.4 mg/dL (0.2-1); BLOOD UREA NITROGEN 14.4 mg/dL (7-18); CALCIUM 9.8 mg/dL (8.5-10.1); MAGNESIUM 2.4 mg/dL (1.8-2.4); POTASSIUM 3.8 mmol/L (3.5-5.1); TOT PROT 7.2 g/dl (6.4-8.2)
--- NOTE | 2019-05-23 09:51 | PN ---
Teaching Attending Note Name of Resident: Humera Ames ATTENDING PHYSICIAN STATEMENT I saw and evaluated the patient. I reviewed the resident's note and discussed the case with the resident. I agree with the resident's findings and plan as documented. SUBJECTIVE: c/o having headache today ,similar to her trigeminal pain OBJECTIVE: Vital Signs Temperature 98.1 F 05/23/19 05:44 Pulse Rate 52 L 05/23/19 05:44 Respiratory Rate 18 05/23/19 05:44 Blood Pressure 105/50 L 05/23/19 05:44 O2 Sat by Pulse Oximetry (%) 97 05/22/19 21:00 GENERAL: The patient is awake, alert, and fully oriented, in no acute distress. HEAD: Normal with no signs of trauma. EYES: PERRL, extraocular movements intact, sclera anicteric, conjunctiva clear. ENT: Ears normal, oropharynx clear without exudates, moist mucous membranes. NECK: Trachea midline, full range of motion, supple. LUNGS: Breath sounds equal, clear to auscultation bilaterally, no wheezes, no crackles, no accessory muscle use. HEART: sinus bradycardia , S1, S2 positive, no murmur, rub or gallop. ABDOMEN: Soft, NT,ND, normoactive bowel sounds, no guarding, no rebound, no hepatosplenomegaly, no masses. EXTREMITIES: 2+ pulses, warm, well-perfused, no edema. NEUROLOGICAL: Cranial nerves II through XII grossly intact. Normal speech, gait is stable PSYCH: Normal mood, normal affect. SKIN: Warm, dry, normal turgor, no rashes or lesions noted CBCD WBC 6.4 K/mm3 (4.0-10.0) 05/23/19 06:55 RBC 4.78 M/mm3 (3.60-5.2) 05/23/19 06:55 Hgb 13.6 GM/dL (10.7-15.3) 05/23/19 06:55 Hct 40.9 % (32.4-45.2) 05/23/19 06:55 MCV 85.6 fl (80-96) 05/23/19 06:55 MCHC 33.2 g/dl (32.0-36.0) 05/23/19 06:55 RDW 13.8 % (11.6-15.6) 05/23/19 06:55 Plt Count 294 K/MM3 (134-434) 05/23/19 06:55 MPV 9.3 fl (7.5-11.1) 05/23/19 06:55 CMP Sodium 140 mmol/L (136-145) 05/23/19 06:55 Potassium 3.8 mmol/L (3.5-5.1) 05/23/19 06:55 Chloride 104 mmol/L (98-107) 05/23/19 06:55 Carbon Dioxide 32 mmol/L (21-32) 05/23/19 06:55 Anion Gap 5 MMOL/L (8-16) L 05/23/19 06:55 BUN 14.4 mg/dL (7-18) 05/23/19 06:55 Creatinine 1.0 mg/dL (0.55-1.3) 05/23/19 06:55 Random Glucose 90 mg/dL (74-106) 05/23/19 06:55 Calcium 9.8 mg/dL (8.5-10.1) 05/23/19 06:55 Total Bilirubin 0.4 mg/dL (0.2-1) 05/23/19 06:55 AST 26 U/L (15-37) 05/23/19 06:55 ALT 32 U/L (13-61) 05/23/19 06:55 Alkaline Phosphatase 82 U/L (45-117) 05/23/19 06:55 Total Protein 7.2 g/dl (6.4-8.2) 05/23/19 06:55 Albumin 3.5 g/dl (3.4-5.0) 05/23/19 06:55 CARDIAC ENZYMES Creatine Kinase 274 U/L (26-192) H 05/21/19 20:51 Troponin I 0.02 ng/ml (0.00-0.05) 05/22/19 01:30 Current Medications Generic Name Dose Route Start Last Admin Trade Name Freq PRN Reason Stop Dose Admin Acetaminophen 650 mg 05/22/19 18:21 05/23/19 01:29 Tylenol - PO 650 mg Q4H PRN Administration HEADACHE Amlodipine Besylate 10 mg 05/22/19 22:00 05/22/19 22:00 Norvasc - PO 10 mg HS KRYSTLE Administration Aspirin 81 mg 05/22/19 10:00 05/22/19 09:21 Asa - PO 81 mg DAILY KRYSTLE Administration Enoxaparin Sodium 40 mg 05/22/19 10:00 05/22/19 09:21 Lovenox - SQ 40 mg DAILY KRYSTLE Administration Hydrochlorothiazide 12.5 mg 05/22/19 10:00 05/22/19 12:15 Hctz - PO 12.5 mg DAILY KRYSTLE Administration Pantoprazole Sodium 20 mg 05/22/19 07:00 05/22/19 05:59 Protonix - PO 20 mg ACBK KRYSTLE Administration Home Medications Medication Instructions Recorded Amlodipine Besylate 10 mg PO DAILY 05/21/19 Aspirin 81 mg PO HS 05/21/19 Hydrochlorothiazide 25 mg PO DAILY 05/21/19 Lisinopril 20 mg PO DAILY 05/21/19 Acetaminophen [Tylenol 500 mg PO BID 05/22/19 .Extra-Strength -] Albuterol Sulfate 0.5% [Ventolin 1 neb IH PRN PRN 05/22/19 0.5% Nebulizing Soln. -] Ergocalciferol (Vitamin D2) 50,000 unit PO WEEKLY 05/22/19 [Vitamin D2] Lidocaine 5% Patch [Lidoderm -] 1 patch TD DAILY 05/22/19 Pregabalin [Lyrica -] 50 mg PO BID 05/22/19 Laboratory Tests 05/22/19 06:30 Triglycerides 80 Cholesterol 214 H Total LDL Cholesterol 139 H HDL Cholesterol 58 Home Medications Medication Instructions Recorded RX: Aspirin 81 mg PO HS 05/21/19 RX: Hydrochlorothiazide 25 mg PO DAILY 05/21/19 RX: Lisinopril 20 mg PO DAILY 05/21/19 RX: Acetaminophen [Tylenol 500 mg PO BID 05/22/19 .Extra-Strength -] RX: Albuterol Sulfate 0.5% 1 neb IH PRN PRN 05/22/19 [Ventolin 0.5% Nebulizing Soln. -] RX: Ergocalciferol (Vitamin D2) 50,000 unit PO WEEKLY 05/22/19 [Vitamin D2] RX: Lidocaine 5% Patch [Lidoderm -] 1 patch TD DAILY 05/22/19 RX: Pregabalin [Lyrica -] 50 mg PO BID 05/22/19 Atorvastatin Ca [Lipitor] 20 mg PO HS #30 tablet 05/23/19 RX: Amlodipine Besylate [Norvasc -] 5 mg PO DAILY #30 tablet 05/23/19 ECHO: normal , except mild tricuspid regurg. ASSESSMENT AND PLAN: Patient is a 54 year old female with a past medical history of hypertension, hyperlipidemia, pre-diabetes, trigeminal neuralgia, C5-C6 disc herniations, antiphospholipid syndrome, hiatal hernia, GERD who presented with chest pain and was admitted to rule out acute coronary syndrome. #Chest pain #HTN: continue BP meds. #HLD: added Lipitor 20mg po hs #Pre-diabetes #GERD # Nipple bloody discharge: patient has an appointment with her oncologist as an outpatient # HLD will start her on Lipitor 20qhs # Elevetaed Blood pressure at night will reduce norvasc to 5mg since bp dropped to 105/50 squeezing pain with radiation improved nl ekg outpatient , patient had it with her , but ekg changes in the hospital surgical menapause family hx of CAD at age of 48-50 patient had a stress test today: if negative will discharge her home. continue ASA, lipitor
[2019-05-23] MEDS ORDERED: REGADENOSON 0.4 MG/5 ML PRE-FILLED SYRINGE IVPUSH ONE ×2 (09:54→10:00)
[2019-05-23] MEDS: PANTOPRAZOLE 20 MG TABLET (FP) PO SCH (10:15)
[2019-05-23] MEDS: ASPIRIN 81 MG CHEWABLE TABLETS PO SCH ×2 (10:15→12:22)
[2019-05-23] MEDS: ENOXAPARIN NA (PORCINE) 40 MG/0.4 ML DISP.SYRIN SQ SCH ×2 (10:15→12:23)
[2019-05-23] MEDS: HYDROCHLOROTHIAZIDE 12.5 MG CAPSULE (FP) PO SCH ×2 (10:15→12:23)
[2019-05-23] MEDS ORDERED: PT OWN MED DRAWER 7, Y5N ONE (12:14)
--- NOTE | 2019-05-23 16:19 | PN ---
Progress Note, Physician Chief Complaint: Telem NSR No cp stress w normal perfusion. History of Present Illness: 54 year old female with history of hypertension, hyperlipidemia, pre-diabetes, trigeminal neuralgia, C5-C6 disc herniations, antiphospholipid syndrome developed intermittent chest pressure with radiation to the neck but also with palpation of her chest. She is sedentary due to her back pain and does not report symptoms with exertion. Echo and ECG were normal - Current Medication List Current Medications: Active Medications Acetaminophen (Tylenol -) 650 mg PO Q4H PRN PRN Reason: HEADACHE Last Admin: 05/23/19 01:29 Dose: 650 mg Amlodipine Besylate (Norvasc -) 10 mg PO HS [facility] Last Admin: 05/22/19 22:00 Dose: 10 mg Aspirin (Asa -) 81 mg PO DAILY [facility] Last Admin: 05/23/19 12:22 Dose: 81 mg Enoxaparin Sodium (Lovenox -) 40 mg SQ DAILY [facility] Last Admin: 05/23/19 12:23 Dose: 40 mg Hydrochlorothiazide (Hctz -) 12.5 mg PO DAILY [facility] Last Admin: 05/23/19 12:23 Dose: 12.5 mg Pantoprazole Sodium (Protonix -) 20 mg PO ACBK [facility] Last Admin: 05/23/19 10:15 Dose: Not Given - Objective Vital Signs: Vital Signs Temperature 97.9 F 05/23/19 14:05 Pulse Rate 58 L 05/23/19 14:05 Respiratory Rate 20 05/23/19 14:05 Blood Pressure 138/81 05/23/19 14:05 O2 Sat by Pulse Oximetry (%) 99 05/23/19 09:00 Constitutional: Yes: Well Nourished, No Distress Eyes: Yes: Conjunctiva Clear, EOM Intact HENT: Yes: Atraumatic, Normocephalic Neck: Yes: Supple, Trachea Midline Cardiovascular: Yes: Regular Rate and Rhythm, S1, S2. No: JVD Respiratory: Yes: Regular, CTA Bilaterally Gastrointestinal: Yes: Normal Bowel Sounds, Soft Edema: No Labs: CBC, BMP 05/23/19 06:55 05/23/19 06:55 Problem List - Problems (1) Chest pain Code(s): R07.9 - CHEST PAIN, UNSPECIFIED Qualifiers: Chest pain type: unspecified Qualified Code(s): R07.9 - Chest pain, unspecified Assessment/Plan 54 F with risk factors for CAD with atypical CP. Normal cardiac parameters so far. Likely MSK pain Will see as needed.
--- NOTE | 2019-05-23 16:55 | DS ---
Physical Exam: SUBJECTIVE: Patient seen and examined. Patient is resting comfortably with no acute complaints OBJECTIVE: Vital Signs Period Temp Pulse Resp BP Sys/Hooper Pulse Ox Last 24 Hr 97.9 F-98.9 F 52-82 18-20 105-151/50-84 97-99 PHYSICAL EXAM GENERAL: The patient is awake, alert, and fully oriented, in no acute distress. HEAD: Normal with no signs of trauma. LUNGS: Breath sounds equal, clear to auscultation bilaterally, no wheezes, no crackles, no accessory muscle use. HEART: Regular rate and rhythm, S1, S2 without murmur, rub or gallop. ABDOMEN: Soft, nontender, nondistended, normoactive bowel sounds, no guarding, no rebound, no hepatosplenomegaly, no masses. EXTREMITIES: 2+ pulses, warm, well-perfused, no edema. SKIN: Warm, dry, normal turgor LABS Laboratory Results - last 24 hr 05/22/19 05/23/19 05/23/19 12:00 06:55 06:55 WBC 6.4 RBC 4.78 Hgb 13.6 Hct 40.9 MCV 85.6 MCH 28.4 MCHC 33.2 RDW 13.8 Plt Count 294 MPV 9.3 Sodium 140 Potassium 3.8 Chloride 104 Carbon Dioxide 32 Anion Gap 5 L BUN 14.4 Creatinine 1.0 Est GFR (CKD-EPI)AfAm 73.97 Est GFR (CKD-EPI)NonAf 63.82 Random Glucose 90 Calcium 9.8 Magnesium 2.4 Total Bilirubin 0.4 AST 26 ALT 32 Alkaline Phosphatase 82 Total Protein 7.2 Albumin 3.5 Free T3 2.6 Chest Xray 05/21/19 Large heart. Unfolded aorta. No acute chest pathology CTA chest 05/21/[address] evidence of pulmonary embolism. Minimal to mild bibasilar discoid atelectasis/scarring. The partially imaged left kidney demonstrates a 0.5 cm nonobstructing upper pole calculus. Negative for PE. Cardia stress test 05/23/19 EXERCISE RESULTS: Nonspecific ST and T-wave changes during infusion which did not meet ischemic criteria. NUCLEAR RESULTS: Probably normal myocardial perfusion with breast attenuation artifact. No evidence of transient ischemic dilatation. LVEF: 77% with normal wall motion. HOSPITAL COURSE: Date of Admission:05/21/19 54 year old female with a past medical history of hypertension, hyperlipidemia, pre-diabetes, trigeminal neuralgia, C5-C6 disc herniations, antiphospholipid syndrome, hiatal hernia, GERD, who presented to the hospital from an urgent care center with 5 days of chest pain.In the ED, EKG showed T wave inversion in lead III, premature atrial complex but no acute ST changes. Repeat EKG in the morning 05/22/19 showed NSR.She was given aspirin 162mg once in the ED. CXR showed no acute abnormalities and CTA showed mild bibasilar discoid atelectasis but negative for PE. Echo was unremarkable except for Mild TR and EF of 60-65% .Troponins have been <0.02 x2.BNP 19.6. Due to family history of early from Heart attack (brother 48 and dad in the 50s), patient underwent nuclear stress test which was negative for demand ischemia. Lipid panel came back elevated for cholesterol of 214, LDL 139 and HDL of 58 leading to lipitor 20mg PO added to her medication regimen. Her amlodipine will be changed from 10mg to 5 mg PO daily as part of her home regimen. Patient will follow up wit her PCP Dr Sinha in one week as well as Dr Squires electric fan assembler in one week. Date of Discharge: 05/23/19 Minutes to complete discharge: 30 Discharge Summary Reason For Visit: CHEST PAIN Current Active Problems Chest pain (Acute) Condition: Stable - Instructions Diet, Activity, Other Instructions: You came to the hospital with complaints of worsening chest pain lasting a few days. We did an echocardiogram of your heart which was normal. You also had a stress test which was normal. You were seen by a electric fan assembler while you were here as well. Your symptoms improved and you were stable to be discharged home. Please resume all of your home medications with the following changes: Please take the cholesterol medication Lipitor 20mg daily We are decreasing your Amlodipine from 10mg to 5mg daily Please follow up with Dr. Sinha within one week Please follow up with the electric fan assembler, Dr. Cross within one week *if you begin to experience worsening chest pains, shortness of breath, nausea/ vomiting, fevers please return to the emergency room immediately Referrals: Kaur Sinha MD [Primary Care Provider] - 1 Week Patric Cross MD [Staff Physician] - 1 Week Disposition: HOME - Home Medications Comprehensive Discharge Medication List: Ambulatory Orders Aspirin 81 mg PO HS 05/21/19 Hydrochlorothiazide 25 mg PO DAILY 05/21/19 Lisinopril 20 mg PO DAILY 05/21/19 Acetaminophen [Tylenol .Extra-Strength -] 500 mg PO BID 05/22/19 Albuterol Sulfate 0.5% [Ventolin 0.5% Nebulizing Soln. -] 1 neb IH PRN PRN 05/22 Ergocalciferol (Vitamin D2) [Vitamin D2] 50,000 unit PO WEEKLY 05/22/19 Lidocaine 5% Patch [Lidoderm -] 1 patch TD DAILY 05/22/19 Pregabalin [Lyrica -] 50 mg PO BID 05/22/19 Amlodipine Besylate [Norvasc -] 5 mg PO DAILY #30 tablet 05/23/19 Atorvastatin Ca [Lipitor] 20 mg PO HS #30 tablet 05/23/19 Problem List - Problems (1) Chest pain Code(s): R07.9 - CHEST PAIN, UNSPECIFIED Qualifiers: Chest pain type: unspecified Qualified Code(s): R07.9 - Chest pain, unspecified This patient is new to me today: No Emergency Visit: Yes ED Registration Date: 05/21/19 Care time: The patient presented to the Emergency Department on the above date and was hospitalized for further evaluation of their emergent condition. Critical Care patient: No - Discharge Referral Referred to [facility] No ATTENDING PHYSICIAN STATEMENT I saw and evaluated the patient. I reviewed the resident's note and discussed the case with the resident. I agree with the resident's findings and plan as documented. SUBJECTIVE: OBJECTIVE: ASSESSMENT AND PLAN:
[2019-05-23 18:38] VITALS: BP 132/74; PULSE 65; TEMP 99
== END 2019-05-23 19:01 | disposition home or self-care (01) | DRG 313 ==
LOC: JER 20:19 → JERBED 23:28 → J4S 05-22 00:48
PROVIDERS: ADMIT Internal Medicine; ATTEND Internal Medicine
DX: R07.9 Chest pain, unspecified (principal); I10 Essential (primary) hypertension; E78.5 Hyperlipidemia, unspecified; K21.9 Gastro-esophageal reflux disease without esophagitis; M50.20 Other cervical disc displacement, unspecified cervical region; R00.1 Bradycardia, unspecified
CPT/HCPCS: 36415; 71046-TC-FY; 71275-TC; 78452-TC; 80053; 80061; 82550; 82553; 83036; 83721; 83735; 83880; 84439; 84443; 84481; 84484; 85025; 85027; 93005; 93010; 93017; 93306-TC; 99285-25; A9502; J0131; J2785